=== PATIENT | female | born 1980 | race Hispanic/Latino ===

== ENCOUNTER 2022-07-15 18:39 | Emergency (ER) | payer MEDICAID, SELFPAY ==
[2022-07-15] MEDS ORDERED: Fentanyl 100 MCG/2 ML VIAL ONE (19:09)
[2022-07-15] MEDS ORDERED: Ketorolac Tromethamine 30 MG/ML VIAL ONE (19:10)
[2022-07-15] MEDS ORDERED: Ondansetron PF 4 MG/2 ML Vial ONE (19:12)
[2022-07-15] MEDS ORDERED: Morphine 4 MG/ML VIAL ONE (21:44)
== END 2022-07-15 22:00 | disposition home or self-care (01) ==
LOC: CSHERS 18:39
DX: S53.104A Unspecified dislocation of right ulnohumeral joint, initial encounter (principal); W21.06XA Struck by volleyball, initial encounter
CPT/HCPCS: 24600; 94760; 96374; 96375; 99152; J1885; J2270; J2405; J3010